=== PATIENT | female | born 1965 | race Caucasian/White ===

== ENCOUNTER 2017-03-18 19:58 | Emergency (ER) | payer MEDICARE ==
[~2017-03-18 19:58] MED LIST: CYCL10TA2 PO; OXYC-323 PO; TRAM-29 PO
[2017-03-18] MEDS ORDERED: MORPHINE SULFATE 10 MG/ML VIAL. IM ONE (20:45)
--- NOTE | 2017-03-18 21:42 | PHYS DOC ---
Past Medical History Past Medical History: CVA, Other Additional Past Medical Histor: brain tumor,right sided weakness r/t cva. Past Surgical History: , Hysterectomy, Other Additional Past Surgical Histo: benign brain tumor removed Alcohol Use: None Drug Use: None Adult General Chief Complaint Chief Complaint: MULTIPLE TRAUMA/FALL HPI HPI Patient is a 51 year old female who presents to the ED after a fall in her garage. The patient states that she has a history of having surgery for brain tumor in the past. She sometimes has some difficulty walking chronically secondary to that. Today she had been doing fine. She was cleaning out her garage. In then suddenly felt weak and had a fall. She does not believe that she had a head injury. She landed mostly on her right hip and on her low back. She's not complaining of pain in her right hip and her low back. She does not have previous problems in these areas but she has had falls in the past. PCP none, the patient moved to this area recently and does not have a primary care physician. Review of Systems Review of Systems Constitutional: Denies fever or chills [] HENT: Denies nasal congestion or sore throat [] Respiratory: Denies cough or shortness of breath [] Cardiovascular: Denies chest pain GI: Denies abdominal pain, nausea, vomiting, bloody stools or diarrhea [] : Denies dysuria or hematuria [] Musculoskeletal: As in history of present illness Integument: Denies rash or skin lesions [] Neurologic: Denies headache, focal weakness or sensory changes [] Current Medications Current Medications Current Medications Medications (Trade) Dose Ordered Sig/Deniz Start Time Stop Time Status Last Admin Dose Admin Morphine Sulfate 10 mg 1X ONCE 03/18/17 20:45 03/18/17 20:46 DC 03/18/17 20:58 10 MG Allergies Allergies Allergies Coded Allergies Type Severity Reaction Last Updated Verified iodine Allergy Unknown Rash 03/18/17 Yes Physical Exam Physical Exam Constitutional: Well developed, well nourished, no acute distress, non-toxic appearance. Alert, mentating normally. HENT: Normocephalic, atraumatic, bilateral external ears normal, nose normal. [ ] Eyes: conjunctiva normal, no discharge. [] Neck: Normal range of motion, no tenderness, supple, no stridor. [] Cardiovascular:Heart rate regular rhythm, no murmur [] Lungs & Thorax: Bilateral breath sounds clear to auscultation [] Abdomen: Bowel sounds normal, soft, no tenderness, no masses, no pulsatile masses. [] Skin: Warm, dry, no erythema, no rash. [] Back: Mild tenderness to palpation over the lumbar spine, no point tenderness and no deformity Extremities: Mild tenderness to palpation of the right hip. Patient is able to actively elevate the right leg off the bed, she is able to flex the right knee and the right hip with mild pain of both Neurologic: Alert and oriented X 3, normal motor function, normal sensory function, no focal deficits noted. [] Current Patient Data Vital Signs Vital Signs Date Time Temp Pulse Resp B/P (MAP) Pulse Ox O2 Delivery O2 Flow Rate FiO2 03/18/17 22:00 68 16 121/71 (88) 98 Room Air 03/18/17 20:08 97.6 97.6 EKG EKG [] Radiology/Procedures Radiology/Procedures X-rays of the right hip and AP pelvis read by me, no acute abnormality X-rays of the lumbar spine read by me, no acute abnormality [] Course & Med Decision Making Course & Med Decision Making Pertinent Labs and Imaging studies reviewed. (See chart for details) 51-year-old female with some chronic problems after brain tumor surgery years ago, had a fall in the garage today, denies head injury or neck injury. X-rays of the right hip, pelvis, and lumbar spine read by me, negative for acute abnormalities. Recheck of the patient after x-rays, she is feeling well, she is showing pictures on her phone to the patient registration manager who is trying to get her registered. The patient is stable for discharge, I gave her names and phone numbers of primary care physician's here [place] and encouraged her to get a primary care physician for follow-up. [] Dragon Disclaimer Dragon Disclaimer This electronic medical record was generated, in whole or in part, using a voice recognition dictation system. Departure Departure Impression: Primary Impression: Contusion of right hip Additional Impression: Lumbar strain Disposition: 01 HOME, SELF-CARE Condition: STABLE Referrals: NON,STAFF (PCP) Patient Instructions: Contusion, [id number]-[id number] Additional Instructions: You will probably be more sore tomorrow morning. Ice to areas of pain, 15-20 minutes out of every 1-2 hours. Ibuprofen as needed for pain, 400-600 mg every 6-8 hours. You were given referrals to primary care doctors in the area. Problem Qualifiers BRET PACHECO MD March 18, 2017 21:42
[2017-03-18 22:00] VITALS: BP 121/71
--- NOTE | 2017-03-19 08:21 | RAD ---
Examination: 2 views of the lumbar spine History: History of low back pain, fall. Comparison: None available Findings: The vertebral body heights are maintained. No evidence of listhesis identified. Mild degenerative changes identified in the lumbar spine with mild intervertebral disc height loss and mild multilevel facet hypertrophic changes. Impression 1. No acute osseous findings 2. Mild degenerative changes lumbar spine.
--- NOTE | 2017-03-19 08:27 | RAD ---
Examination: 2 views of the right hip and a frontal view of the pelvis History: History of right hip pain, low back pain, fall Comparison: None available Findings: The bilateral femoral heads are in the study. There is no gross acute fracture or dislocation identified. Impression: No acute osseous findings.
== END 2017-03-18 22:00 | disposition home or self-care (01) ==
LOC: ER 19:58
DX: S39.012A Strain of muscle, fascia and tendon of lower back, initial encounter (principal); S70.01XA Contusion of right hip, initial encounter; Z86.73 Personal history of transient ischemic attack (TIA), and cerebral infarction without residual deficits; Z88.8 Allergy status to other drugs, medicaments and biological substances; W18.39XA Other fall on same level, initial encounter; Y93.89 Activity, other specified; Y92.59 Other trade areas as the place of occurrence of the external cause; Y99.8 Other external cause status
CPT/HCPCS: 72100; 73502; 96372; 99284; J2270

== ENCOUNTER 2021-12-11 10:08 | Emergency (ER) | payer OTHER, MEDICARE ==
[~2021-12-11] VITALS: Ht 165.1 cm; Wt 82.9 kg
[~2021-12-11 10:08] MED LIST changes: +CYCL10TA19 PO; -CYCL10TA2 PO; +METH-562 PO; -OXYC-323 PO; +OXYC1TAB15 PO; +TOPI100T42 PO; -TRAM-29 PO; +TRAM-48 PO; +provigil PO
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
[2021-12-11 11:59] VITALS: BP 119/76
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
[2021-12-11] MEDS ORDERED: HYDROcodone/APAP 5/325MG 1 TAB TABLET PO ONE (12:15)
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
== END 2021-12-11 12:57 | disposition home or self-care (01) ==
LOC: ER 10:08
DX: S40.022A Contusion of left upper arm, initial encounter (principal); M25.512 Pain in left shoulder; F17.200 Nicotine dependence, unspecified, uncomplicated; Z86.73 Personal history of transient ischemic attack (TIA), and cerebral infarction without residual deficits; Z88.8 Allergy status to other drugs, medicaments and biological substances; V43.52XA Car driver injured in collision with other type car in traffic accident, initial encounter; Y93.I9 Activity, other involving external motion; Y92.89 Other specified places as the place of occurrence of the external cause; Y99.8 Other external cause status
CPT/HCPCS: 71101; 73030; 73060; 99284